=== PATIENT | male | born 1945 | race Asian ===

== ENCOUNTER 2017-08-15 12:26 | Inpatient (IN) | payer BC ==
[2017-08-15] MEDS: IBUPROFEN 600 MG TAB PO (15:09)
[2017-08-15] MEDS: CEFTRIAXONE 1 GM/50 ML (PMX) 50 ML IVPB (15:10)
[2017-08-15 15:14] LABS: ADD MAN DIFF? NO
[2017-08-15] MEDS: ALBUTEROL 0.5% (NEB) 2.5 MG/0.5 ML AMP INH (15:14)
[2017-08-15 15:21] LABS: WHITE BLOOD COUNT 3.5 10^3/ul (4.8-10.8)
[2017-08-15 15:21] LABS: ABNORMAL IP MESSAGE 1; BASOPHILS % 0.9 % (0.0-2.0); EOSINOPHILS # 0.1 10^3/ul (0.0-0.5); EOSINOPHILS % 3.2 % (0.0-7.0); HEMOGLOBIN 12.6 g/dl (14.0-18.0); LYMPHOCYTES # 0.7 10^3/ul (0.8-2.9); LYMPHOCYTES % 21.3 % (15.0-51.0); MEAN CORPUSCULAR HEMOGLOBIN 28.3 pg (29.0-33.0); MEAN CORPUSCULAR HGB CONC 32.3 g/dl (32.0-37.0); MEAN CORPUSCULAR VOLUME 87.4 fl (82.0-101.0); MONOCYTE # 0.6 10^3/ul (0.3-0.9); MONOCYTES % 17.6 % (0.0-11.0); NEUTROPHILS % 56.7 % (39.0-77.0); PLATELET COUNT 56 10^3/UL (140-415); POSITIVE DIFF @See below; RED BLOOD COUNT 4.46 10^6/ul (4.70-6.10); RED CELL DISTRIBUTION WIDTH 18.4 % (11.5-14.5)
[2017-08-15 16:04] LABS: INR 1.71; PROTIME 20.4 Sec (11.9-14.9); PT RATIO 1.6
[2017-08-15 16:05] LABS: PARTIAL THROMBOPLASTIN TIME 46.2 Sec (25.0-35.0)
[2017-08-15 16:40] LABS: LACTIC ACID 2.8 mmol/L (0.5-2.0)
[2017-08-15 16:40] LABS: ALANINE AMINOTRANSFERASE 17 IU/L (13-69); ALBUMIN 4.3 g/dl (3.3-4.9); ALKALINE PHOSPHATASE 249 IU/L (42-121); ANION GAP 23 (8-16); ASPARTATE AMINO TRANSFERASE 58 IU/L (15-46); BILIRUBIN,INDIRECT 0.4 mg/dl (0-1.1); BLOOD UREA NITROGEN 48 mg/dl (7-20); CALCIUM 8.7 mg/dl (8.4-10.2); CARBON DIOXIDE 27 mmol/L (21-31); CHLORIDE 90 mmol/L (97-110); GLUCOSE 99 mg/dl (70-220); LIPASE 458 U/L (23-300); POTASSIUM 4.2 mmol/L (3.5-5.1); SODIUM 136 mmol/L (135-144); TOTAL PROTEIN 8.2 g/dl (6.1-8.1)
[2017-08-15] MEDS: VANCOMYCIN 1 GM (PMX) 250 ML IVPB (16:45)
[2017-08-15 16:53] LABS: BILIRUBIN,TOTAL 0.7 mg/dl (0.2-1.3)
[2017-08-15 16:54] LABS: TROPONIN-I 0.178 ng/ml (0.00-0.12)
[2017-08-15 16:59] LABS: LACTIC ACID 1.7 mmol/L (0.5-2.0)
[2017-08-15] MEDS: OSELTAMIVIR 30 MG CAP PO (17:02)
[2017-08-15] MEDS: INSULIN ASPART [NOVOLOG] 3 ML PEN SC ×2 (17:42→20:47)
[2017-08-15] MEDS ORDERED: GLUCOSE GEL 15 GRAM TUBE BUCCAL (18:00)
[2017-08-15] MEDS ORDERED: GLUCOSE GEL 15 GRAM TUBE PO ×2 (18:00)
[2017-08-15 19:25] LABS: LACTIC ACID 2.2 mmol/L (0.5-2.0)
[2017-08-15] MEDS ORDERED: VANCOMYCIN IV PER PHARMACY XX (21:00)
[2017-08-16] MEDS: ACETAMINOPHEN 325 MG TAB PO ×3 (00:38→20:10)
[2017-08-16] MEDS: ACCU-CHEK XX (02:00)
[2017-08-16] MEDS: PANTOPRAZOLE (EC) 40 MG TAB PO (05:39)
[2017-08-16 06:28] LABS: WHITE BLOOD COUNT 2.7 10^3/ul (4.8-10.8)
[2017-08-16 06:28] LABS: ABNORMAL IP MESSAGE 1; HEMOGLOBIN 10.9 g/dl (14.0-18.0); MEAN CORPUSCULAR HEMOGLOBIN 28.9 pg (29.0-33.0); MEAN CORPUSCULAR VOLUME 87.5 fl (82.0-101.0); MEAN PLATELET VOLUME 12.1 fl (7.4-10.4); PLATELET COUNT 55 10^3/UL (140-415); POSITIVE DIFF @See below; RED BLOOD COUNT 3.77 10^6/ul (4.70-6.10); RED CELL DISTRIBUTION WIDTH 18.6 % (11.5-14.5)
[2017-08-16 06:35] LABS: ADD MAN DIFF? YES
[2017-08-16 06:50] LABS: ANION GAP 24 (8-16); BLOOD UREA NITROGEN 56 mg/dl (7-20); CALCIUM 8.1 mg/dl (8.4-10.2); CARBON DIOXIDE 26 mmol/L (21-31); CHLORIDE 93 mmol/L (97-110); CREATININE 4.53 mg/dl (0.61-1.24); GLUCOSE 94 mg/dl (70-220); SODIUM 139 mmol/L (135-144)
[2017-08-16 07:22] LABS: LACTIC ACID 2.3 mmol/L (0.5-2.0)
[2017-08-16 07:23] LABS: FREE T4 (FREE THYROXINE) 1.55 ng/dl (0.78-2.44)
[2017-08-16] MEDS: INSULIN ASPART [NOVOLOG] 3 ML PEN SC ×4 (07:35→21:00)
[2017-08-16 07:39] LABS: ANISOCYTOSIS 1+ (0-0); BAND NEUTROPHILS #M 0.1 10^3/ul (0.0-0.6); BAND NEUTROPHILS % (M) 6 % (0-4); BASOPHILS % (M) 2 % (0-2); BURR CELLS 2+ (0-0); EOSINOPHILS % (M) 12 % (0-7); GIANT THROMBO% (M) 1 % (0-0); LYMPHOCYTES #M 0.7 10^3/ul (0.8-2.9); LYMPHOCYTES % (M) 28 % (15-51); MONOCYTE #M 0.1 10^3/ul (0.3-0.9); MONOCYTES % (M) 6 % (0-11); PLATELET ESTIMATE DECREASED; POIKILOCYTOSIS 2+ (0-0); POLYCHROMASIA 1+ (0-0); REACTIVE LYMPHOCYTES #M 0.2 10^3/ul (0.0-0.0); REACTIVE LYMPHOCYTES% (M) 9 % (0-0); SEGMENTED NEUTROPHILS (M) % 37 % (39-77); SMUDGE%M 22 % (0-0)
[2017-08-16 08:20] LABS: HEMOGLOBIN A1C 6.3 % (0-5.9)
[2017-08-16] MEDS: CEFEPIME 1GM/50 ML (PMX) 50 ML IVPB (10:06)
[2017-08-16] MEDS ORDERED: LEVALBUTEROL (NEB) 0.63 MG/3 ML AMP HHN (17:30)
[2017-08-16 20:34] LABS: CREATINE KINASE 253 IU/L (23-200)
[2017-08-16 20:45] LABS: CK INDEX 1.3
[2017-08-16 20:47] LABS: CK-MB 3.17 ng/ml (0.0-2.4)
[2017-08-16 20:48] LABS: TROPONIN-I 0.189 ng/ml (0.00-0.12)
[2017-08-16] MEDS: LEVALBUTEROL (NEB) 0.63 MG/3 ML AMP HHN (21:03)
[2017-08-16] MEDS: OSELTAMIVIR 30 MG CAP PO (22:28)
[2017-08-17 01:26] LABS: CREATINE KINASE 272 IU/L (23-200)
[2017-08-17 01:40] LABS: CK INDEX 1.1
[2017-08-17 01:42] LABS: CK-MB 2.96 ng/ml (0.0-2.4); TROPONIN-I 0.191 ng/ml (0.00-0.12)
[2017-08-17] MEDS: ACCU-CHEK XX (01:43)
[2017-08-17] MEDS: LEVALBUTEROL (NEB) 0.63 MG/3 ML AMP HHN ×5 (02:00→19:33)
[2017-08-17] MEDS: GLUCAGON 1 MG INJ IM ×2 (02:15→22:06)
[2017-08-17] MEDS: GUAIFENESIN/DM 5ML CUP PO ×2 (05:48→13:10)
[2017-08-17] MEDS: PANTOPRAZOLE (EC) 40 MG TAB PO (05:55)
[2017-08-17 06:32] LABS: CREATINE KINASE 311 IU/L (23-200)
[2017-08-17 06:37] LABS: CK INDEX 1.2
[2017-08-17 06:51] LABS: CK-MB 3.75 ng/ml (0.0-2.4); TROPONIN-I 0.199 ng/ml (0.00-0.12)
[2017-08-17] MEDS: INSULIN ASPART [NOVOLOG] 3 ML PEN SC ×4 (07:35→21:00)
[2017-08-17 07:51] LABS: CHOLESTEROL 84 mg/dl (100-200)
[2017-08-17 07:51] LABS: CHOL/HDL RATIO 2.8 RATIO; HDL CHOLESTEROL 29 mg/dl (31-75); LDL CHOLESTEROL,CALCULATED 44 mg/dl; TRIGLYCERIDES 54 mg/dl (0-149)
[2017-08-17] MEDS: CEFEPIME 1GM/50 ML (PMX) 50 ML IVPB (09:37)
[2017-08-17] MEDS: INFLUENZA VIRUS VACCINE 0.5 ML (DISPENSING) IM* (09:38)
[2017-08-17] MEDS: VANCOMYCIN 1 GM 250 ML IVPB (13:12)
[2017-08-17] MEDS: ACETAMINOPHEN 325 MG TAB PO (21:11)
[2017-08-17] MEDS: DEXTROSE 50% 50 ML SYRINGE IV (22:52)
[2017-08-18] MEDS: ACCU-CHEK XX (02:00)
[2017-08-18] MEDS: LEVALBUTEROL (NEB) 0.63 MG/3 ML AMP HHN ×4 (02:38→20:11)
[2017-08-18] MEDS: DEXTROSE 50% 50 ML SYRINGE IV ×2 (03:24→12:37)
[2017-08-18 05:32] LABS: ADD MAN DIFF? NO
[2017-08-18 05:35] LABS: WHITE BLOOD COUNT 3.3 10^3/ul (4.8-10.8)
[2017-08-18 05:35] LABS: ABNORMAL IP MESSAGE 1; BASOPHILS % 0.6 % (0.0-2.0); EOSINOPHILS # 0.4 10^3/ul (0.0-0.5); EOSINOPHILS % 12.2 % (0.0-7.0); HEMATOCRIT 34.3 % (42.0-52.0); HEMOGLOBIN 11.1 g/dl (14.0-18.0); LYMPHOCYTES % 31.1 % (15.0-51.0); MEAN CORPUSCULAR HEMOGLOBIN 28.5 pg (29.0-33.0); MEAN CORPUSCULAR HGB CONC 32.4 g/dl (32.0-37.0); MEAN CORPUSCULAR VOLUME 87.9 fl (82.0-101.0); MONOCYTE # 0.3 10^3/ul (0.3-0.9); MONOCYTES % 9.8 % (0.0-11.0); NEUTROPHIL # 1.5 10^3/ul (1.6-7.5); POSITIVE DIFF @See below; RED CELL DISTRIBUTION WIDTH 18.4 % (11.5-14.5)
[2017-08-18 06:20] LABS: CREATINE KINASE 544 IU/L (23-200)
[2017-08-18 06:24] LABS: TROPONIN-I 0.149 ng/ml (0.00-0.12)
[2017-08-18 06:40] LABS: PLATELET COUNT 26 10^3/UL (140-415)
[2017-08-18 06:48] LABS: ANION GAP 24 (8-16); BLOOD UREA NITROGEN 49 mg/dl (7-20); CARBON DIOXIDE 21 mmol/L (21-31); CHLORIDE 95 mmol/L (97-110); CREATININE 4.44 mg/dl (0.61-1.24); GLUCOSE 115 mg/dl (70-220); SODIUM 136 mmol/L (135-144)
[2017-08-18] MEDS: INSULIN ASPART [NOVOLOG] 3 ML PEN SC ×4 (09:22→21:00)
[2017-08-18] MEDS: CEFEPIME 1GM/50 ML (PMX) 50 ML IVPB (09:24)
[2017-08-18] MEDS: ONDANSETRON 4 MG INJ IV (09:24)
[2017-08-18] MEDS: PANTOPRAZOLE (EC) 40 MG TAB PO (09:24)
[2017-08-18] MEDS: GUAIFENESIN/DM 5ML CUP PO (12:18)
[2017-08-18] MEDS: ACETAMINOPHEN 325 MG TAB PO ×2 (15:52→17:31)
[2017-08-18] MEDS: OSELTAMIVIR 30 MG CAP PO (22:14)
[2017-08-18] MEDS: SOD CHLORIDE 0.9% 250 ML IV (22:18)
[2017-08-18] MEDS ORDERED: ACETAMINOPHEN 500 MG TAB PO (22:30)
[2017-08-18 23:23] LABS: ANION GAP 19 (8-16); BLOOD UREA NITROGEN 33 mg/dl (7-20); CALCIUM 8.1 mg/dl (8.4-10.2); CARBON DIOXIDE 25 mmol/L (21-31); CHLORIDE 98 mmol/L (97-110); CREATININE 3.74 mg/dl (0.61-1.24); GLUCOSE 125 mg/dl (70-220); POTASSIUM 3.3 mmol/L (3.5-5.1); SODIUM 139 mmol/L (135-144)
[2017-08-18] MEDS: GABAPENTIN 100 MG CAP PO (23:56)
[2017-08-19] MEDS: ACCU-CHEK XX ×2 (02:00→23:30)
[2017-08-19] MEDS: LEVALBUTEROL (NEB) 0.63 MG/3 ML AMP HHN ×4 (02:08→19:54)
[2017-08-19] MEDS: POTASSIUM CHLORIDE (SR) 20 MEQ TAB PO (04:24)
[2017-08-19] MEDS: PANTOPRAZOLE (EC) 40 MG TAB PO (05:13)
[2017-08-19] MEDS: INSULIN ASPART [NOVOLOG] 3 ML PEN SC ×4 (08:00→21:00)
[2017-08-19 09:10] LABS: LACTIC ACID 3.2 mmol/L (0.5-2.0)
[2017-08-19] MEDS: GABAPENTIN 100 MG CAP PO ×2 (09:34→21:51)
[2017-08-19] MEDS: predniSONE 20 MG TAB PO (09:34)
[2017-08-19 09:55] LABS: ABNORMAL IP MESSAGE 1; HEMATOCRIT 35.5 % (42.0-52.0); HEMOGLOBIN 11.3 g/dl (14.0-18.0); MEAN CORPUSCULAR HEMOGLOBIN 27.9 pg (29.0-33.0); MEAN CORPUSCULAR HGB CONC 31.8 g/dl (32.0-37.0); MEAN CORPUSCULAR VOLUME 87.7 fl (82.0-101.0); POSITIVE DIFF @See below; RED BLOOD COUNT 4.05 10^6/ul (4.70-6.10); RED CELL DISTRIBUTION WIDTH 18.4 % (11.5-14.5)
[2017-08-19 10:06] LABS: ADD MAN DIFF? YES
[2017-08-19 10:09] LABS: ANION GAP 20 (8-16); BLOOD UREA NITROGEN 35 mg/dl (7-20); CALCIUM 8.2 mg/dl (8.4-10.2); CARBON DIOXIDE 26 mmol/L (21-31); CHLORIDE 97 mmol/L (97-110); CREATININE 4.08 mg/dl (0.61-1.24); GLUCOSE 108 mg/dl (70-220); PLATELET COUNT 19 10^3/UL (140-415); POTASSIUM 3.6 mmol/L (3.5-5.1); SODIUM 139 mmol/L (135-144)
[2017-08-19 10:52] LABS: BAND NEUTROPHILS #M 0.2 10^3/ul (0.0-0.6); BAND NEUTROPHILS % (M) 7 % (0-4); BURR CELLS 2+ (0-0); ECHINOCYTOSIS 2+ (0-0); EOSINOPHILS % (M) 14 % (0-7); LYMPHOCYTES #M 1.1 10^3/ul (0.8-2.9); LYMPHOCYTES % (M) 38 % (15-51); MONOCYTE #M 0.2 10^3/ul (0.3-0.9); MONOCYTES % (M) 8 % (0-11); PLATELET ESTIMATE SIG DECREASED; POIKILOCYTOSIS 2+ (0-0); SEGMENTED NEUTROPHILS (M) % 33 % (39-77); SMUDGE%M 3 % (0-0); TEAR DROP CELLS 1+ (0-0)
[2017-08-19] MEDS: CEFEPIME 1GM/50 ML (PMX) 50 ML IVPB (11:24)
[2017-08-19 13:37] LABS: LACTIC ACID 2.4 mmol/L (0.5-2.0)
[2017-08-19] MEDS: ALBUMIN HUMAN 25% 100 ML IV ×2 (14:06→21:51)
[2017-08-19] MEDS: ONDANSETRON 4 MG INJ IV ×2 (15:49→22:04)
[2017-08-19 19:38] LABS: LACTIC ACID 3.1 mmol/L (0.5-2.0)
[2017-08-19] MEDS: GUAIFENESIN/DM 5ML CUP PO (22:04)
[2017-08-20 00:36] LABS: TYPE AND SCREEN 1
[2017-08-20] MEDS: LEVALBUTEROL (NEB) 0.63 MG/3 ML AMP HHN ×4 (01:10→21:08)
[2017-08-20] MEDS: PANTOPRAZOLE (EC) 40 MG TAB PO (05:32)
[2017-08-20] MEDS: INSULIN ASPART [NOVOLOG] 3 ML PEN SC ×4 (08:00→21:58)
[2017-08-20] MEDS: predniSONE 20 MG TAB PO (08:26)
[2017-08-20] MEDS: GABAPENTIN 100 MG CAP PO ×2 (08:26→22:02)
[2017-08-20] MEDS: CEFEPIME 1GM/50 ML (PMX) 50 ML IVPB (08:27)
[2017-08-20] MEDS: ONDANSETRON 4 MG INJ IV ×2 (13:32→21:50)
[2017-08-20 15:04] LABS: ADD MAN DIFF? NO
[2017-08-20 15:06] LABS: WHITE BLOOD COUNT 3.1 10^3/ul (4.8-10.8)
[2017-08-20 15:06] LABS: ABNORMAL IP MESSAGE 1; HEMATOCRIT 34.9 % (42.0-52.0); HEMOGLOBIN 11.2 g/dl (14.0-18.0); LYMPHOCYTES # 0.5 10^3/ul (0.8-2.9); LYMPHOCYTES % 17.3 % (15.0-51.0); MEAN CORPUSCULAR HEMOGLOBIN 27.9 pg (29.0-33.0); MEAN CORPUSCULAR HGB CONC 32.1 g/dl (32.0-37.0); MONOCYTE # 0.2 10^3/ul (0.3-0.9); MONOCYTES % 4.8 % (0.0-11.0); NEUTROPHIL # 2.4 10^3/ul (1.6-7.5); NEUTROPHILS % 77.6 % (39.0-77.0); NUCLEATED RED BLOOD CELLS% 0.6 /100WBC (0.0-0.0); PLATELET COUNT 54 10^3/UL (140-415); POSITIVE DIFF @See below; RED BLOOD COUNT 4.01 10^6/ul (4.70-6.10); RED CELL DISTRIBUTION WIDTH 18.3 % (11.5-14.5)
[2017-08-20 15:29] LABS: ANION GAP 27 (8-16); BLOOD UREA NITROGEN 44 mg/dl (7-20); CALCIUM 8.3 mg/dl (8.4-10.2); CARBON DIOXIDE 17 mmol/L (21-31); CHLORIDE 98 mmol/L (97-110); CREATININE 4.71 mg/dl (0.61-1.24); GLUCOSE 168 mg/dl (70-220); POTASSIUM 5.3 mmol/L (3.5-5.1); SODIUM 137 mmol/L (135-144)
[2017-08-20 15:36] LABS: INR 1.79; PROTIME 21.2 Sec (11.9-14.9); PT RATIO 1.7
[2017-08-20 15:53] LABS: LACTIC ACID 3.8 mmol/L (0.5-2.0)
[2017-08-20 18:06] LABS: PLATELET COUNT 67 10^3/UL (140-415)
[2017-08-20 18:29] LABS: INR 1.77; PT RATIO 1.6
[2017-08-20 18:30] LABS: PARTIAL THROMBOPLASTIN TIME 40.3 Sec (25.0-35.0); THROMBIN TIME 19.2 SEC (13.8-19.1)
[2017-08-20 18:30] LABS: TRIGLYCERIDES 103 mg/dl (0-149)
[2017-08-20 18:33] LABS: D-DIMER 3745.49 ng/ml (<460)
[2017-08-20 18:35] LABS: FIBRIN SPLIT PRODUCT <10 ug/ml (<10)
[2017-08-20] MEDS ORDERED: AL HYDROX/MG HYDROX/SIMETH 30 ML CUP PO (19:00)
[2017-08-20 19:15] LABS: AMYLASE 97 U/L (11-123)
[2017-08-20 19:38] LABS: LIPASE 147 U/L (23-300)
[2017-08-20] MEDS: PANTOPRAZOLE 40 MG INJ IV (21:55)
[2017-08-20] MEDS: NA POLYST SULFON 15 GM/60 ML BTL PO (21:55)
[2017-08-20] MEDS: SOD CHLORIDE 0.9% 1,000 ML IV (22:04)
[2017-08-21] MEDS: OSELTAMIVIR 30 MG CAP PO (00:33)
[2017-08-21] MEDS: LEVALBUTEROL (NEB) 0.63 MG/3 ML AMP HHN ×4 (01:46→20:00)
[2017-08-21] MEDS: PANTOPRAZOLE (EC) 40 MG TAB PO (05:46)
[2017-08-21] MEDS: ACCU-CHEK XX (05:46)
[2017-08-21 08:21] LABS: ADD MAN DIFF? NO
[2017-08-21 08:26] LABS: WHITE BLOOD COUNT 4.6 10^3/ul (4.8-10.8)
[2017-08-21 08:26] LABS: ABNORMAL IP MESSAGE 1; HEMATOCRIT 33.4 % (42.0-52.0); HEMOGLOBIN 10.9 g/dl (14.0-18.0); LYMPHOCYTES # 0.7 10^3/ul (0.8-2.9); LYMPHOCYTES % 15.8 % (15.0-51.0); MEAN CORPUSCULAR HGB CONC 32.6 g/dl (32.0-37.0); MEAN CORPUSCULAR VOLUME 85.9 fl (82.0-101.0); MEAN PLATELET VOLUME 12.3 fl (7.4-10.4); MONOCYTE # 0.4 10^3/ul (0.3-0.9); MONOCYTES % 8.7 % (0.0-11.0); NEUTROPHIL # 3.5 10^3/ul (1.6-7.5); NEUTROPHILS % 75.3 % (39.0-77.0); NUCLEATED RED BLOOD CELLS% 0.4 /100WBC (0.0-0.0); PLATELET COUNT 73 10^3/UL (140-415); POSITIVE DIFF @See below; RED BLOOD COUNT 3.89 10^6/ul (4.70-6.10); RED CELL DISTRIBUTION WIDTH 18.1 % (11.5-14.5)
[2017-08-21] MEDS: INSULIN ASPART [NOVOLOG] 3 ML PEN SC ×4 (08:35→22:23)
[2017-08-21] MEDS: GABAPENTIN 100 MG CAP PO ×2 (08:36→22:11)
[2017-08-21] MEDS: predniSONE 10 MG TAB PO (08:36)
[2017-08-21] MEDS: CEFEPIME 1GM/50 ML (PMX) 50 ML IVPB (08:38)
[2017-08-21 08:51] LABS: ALANINE AMINOTRANSFERASE 23 IU/L (13-69); ALBUMIN 3.9 g/dl (3.3-4.9); ALBUMIN/GLOBULIN RATIO 1.11; ALKALINE PHOSPHATASE 171 IU/L (42-121); ANION GAP 26 (8-16); ASPARTATE AMINO TRANSFERASE 52 IU/L (15-46); BILIRUBIN,INDIRECT 0.4 mg/dl (0-1.1); BILIRUBIN,TOTAL 0.5 mg/dl (0.2-1.3); BLOOD UREA NITROGEN 52 mg/dl (7-20); C-REACTIVE PROTEIN 2.3 mg/dl (0.0-0.9); CALCIUM 8.2 mg/dl (8.4-10.2); CARBON DIOXIDE 19 mmol/L (21-31); CHLORIDE 97 mmol/L (97-110); CREATININE 5.14 mg/dl (0.61-1.24); GLUCOSE 196 mg/dl (70-220); POTASSIUM 4.6 mmol/L (3.5-5.1); SODIUM 137 mmol/L (135-144); TOTAL PROTEIN 7.4 g/dl (6.1-8.1)
[2017-08-21 09:03] LABS: LACTIC ACID 2.4 mmol/L (0.5-2.0)
[2017-08-21] MEDS: VANCOMYCIN 1 GM 250 ML IVPB (10:13)
[2017-08-21 10:28] LABS: ERYTHROCYTE SEDIMENTATION RATE 5 mm/Hr (0-20)
[2017-08-21 16:09] LABS: TROPONIN-I 0.045 ng/ml (0.00-0.12)
[2017-08-21] MEDS: METOCLOPRAMIDE 10 MG INJ IV (17:27)
[2017-08-21] MEDS: ACETAMINOPHEN 325 MG TAB PO (22:11)
[2017-08-21] MEDS: INSULIN GLARGINE [LANtus] 3 ML PEN SC (22:29)
[2017-08-22] MEDS: METOCLOPRAMIDE 10 MG INJ IV ×5 (01:06→23:46)
[2017-08-22] MEDS: ACCU-CHEK XX (01:06)
[2017-08-22] MEDS: LEVALBUTEROL (NEB) 0.63 MG/3 ML AMP HHN ×4 (01:49→19:49)
[2017-08-22] MEDS: PANTOPRAZOLE (EC) 40 MG TAB PO (05:44)
[2017-08-22 08:00] LABS: ADD MAN DIFF? NO
[2017-08-22 08:03] LABS: ABNORMAL IP MESSAGE 1; HEMATOCRIT 32.5 % (42.0-52.0); HEMOGLOBIN 10.7 g/dl (14.0-18.0); LYMPHOCYTES # 0.8 10^3/ul (0.8-2.9); LYMPHOCYTES % 13.2 % (15.0-51.0); MEAN CORPUSCULAR HEMOGLOBIN 28.2 pg (29.0-33.0); MEAN CORPUSCULAR HGB CONC 32.9 g/dl (32.0-37.0); MEAN CORPUSCULAR VOLUME 85.5 fl (82.0-101.0); MEAN PLATELET VOLUME 13.5 fl (7.4-10.4); MONOCYTE # 0.6 10^3/ul (0.3-0.9); MONOCYTES % 10.3 % (0.0-11.0); NEUTROPHIL # 4.6 10^3/ul (1.6-7.5); NEUTROPHILS % 76.2 % (39.0-77.0); POSITIVE DIFF @See below; RED CELL DISTRIBUTION WIDTH 18.2 % (11.5-14.5)
[2017-08-22] MEDS: GABAPENTIN 100 MG CAP PO (08:19)
[2017-08-22] MEDS: predniSONE 10 MG TAB PO (08:19)
[2017-08-22] MEDS: INSULIN ASPART [NOVOLOG] 3 ML PEN SC ×4 (08:25→20:56)
[2017-08-22 08:30] LABS: ANION GAP 18 (8-16); BLOOD UREA NITROGEN 35 mg/dl (7-20); CALCIUM 8.2 mg/dl (8.4-10.2); CARBON DIOXIDE 23 mmol/L (21-31); CHLORIDE 98 mmol/L (97-110); CREATININE 3.97 mg/dl (0.61-1.24); GLUCOSE 132 mg/dl (70-220); SODIUM 135 mmol/L (135-144)
[2017-08-22 08:36] LABS: PLATELET COUNT 53 10^3/UL (140-415)
[2017-08-22] MEDS: CEFEPIME 1GM/50 ML (PMX) 50 ML IVPB (09:30)
[2017-08-22 10:49] LABS: TYPE AND SCREEN 1 1
[2017-08-22] MEDS: ACETAMINOPHEN 325 MG TAB PO (13:01)
[2017-08-22 17:32] LABS: LACTATE DEHYDROGENASE 679 IU/L (313-618)
[2017-08-22] MEDS: ZOLPIDEM 5 MG TAB PO (20:52)
[2017-08-22] MEDS: OSELTAMIVIR 30 MG CAP PO (20:52)
[2017-08-22] MEDS: INSULIN GLARGINE [LANtus] 3 ML PEN SC (20:55)
[2017-08-23] MEDS: LEVALBUTEROL (NEB) 0.63 MG/3 ML AMP HHN ×4 (02:15→20:08)
[2017-08-23] MEDS: ACCU-CHEK XX (02:28)
[2017-08-23] MEDS: GUAIFENESIN/DM 5ML CUP PO (02:30)
[2017-08-23] MEDS: PANTOPRAZOLE (EC) 40 MG TAB PO (06:20)
[2017-08-23] MEDS: METOCLOPRAMIDE 10 MG INJ IV ×3 (06:21→17:14)
[2017-08-23] MEDS: INSULIN ASPART [NOVOLOG] 3 ML PEN SC ×4 (08:10→21:07)
[2017-08-23] MEDS: predniSONE 10 MG TAB PO (08:12)
[2017-08-23 08:22] LABS: PLATELET COUNT 64 10^3/UL (140-415)
[2017-08-23 08:38] LABS: INR 1.73; PROTIME 20.6 Sec (11.9-14.9); PT RATIO 1.6
[2017-08-23 08:40] LABS: PARTIAL THROMBOPLASTIN TIME 34.9 Sec (25.0-35.0)
[2017-08-23 08:43] LABS: THROMBIN TIME 20.3 SEC (13.8-19.1)
[2017-08-23 09:19] LABS: D-DIMER 6286.69 ng/ml (<460)
[2017-08-23 09:42] LABS: FIBRIN SPLIT PRODUCT >10 and <40 ug/ml (<10)
[2017-08-23 15:42] LABS: HEPARIN INDUCED PLATELET AB NEGATIVE (NEGATIVE)
[2017-08-23] MEDS: INSULIN GLARGINE [LANtus] 3 ML PEN SC (21:08)
[2017-08-24 00:02] LABS: TYPE AND SCREEN 1 1
[2017-08-24] MEDS: METOCLOPRAMIDE 10 MG INJ IV ×3 (00:49→12:00)
[2017-08-24] MEDS: LEVALBUTEROL (NEB) 0.63 MG/3 ML AMP HHN ×4 (01:53→20:12)
[2017-08-24] MEDS: ACCU-CHEK XX (02:00)
[2017-08-24] MEDS: PANTOPRAZOLE (EC) 40 MG TAB PO (06:08)
[2017-08-24] MEDS: INSULIN ASPART [NOVOLOG] 3 ML PEN SC ×4 (07:52→20:31)
[2017-08-24 08:54] LABS: ABNORMAL IP MESSAGE 1; ADD MAN DIFF? NO; BASOPHILS % 0.1 % (0.0-2.0); HEMOGLOBIN 11.6 g/dl (14.0-18.0); LYMPHOCYTES % 12.8 % (15.0-51.0); MEAN CORPUSCULAR HEMOGLOBIN 28.4 pg (29.0-33.0); MEAN CORPUSCULAR HGB CONC 33.1 g/dl (32.0-37.0); MEAN CORPUSCULAR VOLUME 85.8 fl (82.0-101.0); MONOCYTES % 12.3 % (0.0-11.0); NEUTROPHIL # 5.9 10^3/ul (1.6-7.5); NEUTROPHILS % 74.3 % (39.0-77.0); NUCLEATED RED BLOOD CELLS% 0.5 /100WBC (0.0-0.0); POSITIVE DIFF @See below; RED BLOOD COUNT 4.08 10^6/ul (4.70-6.10)
[2017-08-24 08:54] LABS: WHITE BLOOD COUNT 7.9 10^3/ul (4.8-10.8)
[2017-08-24] MEDS: predniSONE 10 MG TAB PO (08:57)
[2017-08-24 08:58] LABS: PLATELET COUNT 51 10^3/UL (140-415)
[2017-08-24] MEDS: ONDANSETRON 4 MG INJ IV (09:02)
[2017-08-24 09:22] LABS: INR 1.44; PROTIME 17.8 Sec (11.9-14.9); PT RATIO 1.4
[2017-08-24 09:23] LABS: PARTIAL THROMBOPLASTIN TIME 35.1 Sec (25.0-35.0)
[2017-08-24 09:24] LABS: THROMBIN TIME 20.6 SEC (13.8-19.1)
[2017-08-24 09:27] LABS: FIBRIN SPLIT PRODUCT >10 and <40 ug/ml (<10)
[2017-08-24 09:29] LABS: PLATELET COUNT 51 10^3/UL (140-440)
[2017-08-24 09:34] LABS: ALANINE AMINOTRANSFERASE 24 IU/L (13-69); ALBUMIN 3.7 g/dl (3.3-4.9); ALKALINE PHOSPHATASE 154 IU/L (42-121); ANION GAP 17 (8-16); ASPARTATE AMINO TRANSFERASE 39 IU/L (15-46); BILIRUBIN,INDIRECT 0.3 mg/dl (0-1.1); BILIRUBIN,TOTAL 0.4 mg/dl (0.2-1.3); BLOOD UREA NITROGEN 40 mg/dl (7-20); CALCIUM 8.9 mg/dl (8.4-10.2); CARBON DIOXIDE 25 mmol/L (21-31); CHLORIDE 98 mmol/L (97-110); CREATININE 4.19 mg/dl (0.61-1.24); GLUCOSE 129 mg/dl (70-220); POTASSIUM 3.2 mmol/L (3.5-5.1); SODIUM 137 mmol/L (135-144); TOTAL PROTEIN 7.4 g/dl (6.1-8.1)
[2017-08-24 09:43] LABS: D-DIMER 8519.87 ng/ml (<460)
[2017-08-24 11:23] LABS: PROCALCITONIN 9.84 ng/mL (<0.10)
[2017-08-24] MEDS: POTASSIUM CHLORIDE (SR) 20 MEQ TAB PO (12:53)
[2017-08-24] MEDS: METOCLOPRAMIDE 5 MG TAB PO ×2 (17:10→23:43)
[2017-08-24] MEDS: INSULIN GLARGINE [LANtus] 3 ML PEN SC (20:27)
[2017-08-25] MEDS: ACCU-CHEK XX (02:00)
[2017-08-25] MEDS: LEVALBUTEROL (NEB) 0.63 MG/3 ML AMP HHN ×4 (02:00→20:19)
[2017-08-25] MEDS: PANTOPRAZOLE (EC) 40 MG TAB PO (06:03)
[2017-08-25] MEDS: METOCLOPRAMIDE 5 MG TAB PO ×3 (06:03→18:00)
[2017-08-25 06:42] LABS: ADD MAN DIFF? NO
[2017-08-25 06:54] LABS: WHITE BLOOD COUNT 9.2 10^3/ul (4.8-10.8)
[2017-08-25 06:54] LABS: ABNORMAL IP MESSAGE 1; BASOPHILS % 0.1 % (0.0-2.0); HEMATOCRIT 44.2 % (42.0-52.0); HEMOGLOBIN 14.3 g/dl (14.0-18.0); LYMPHOCYTES # 1.3 10^3/ul (0.8-2.9); LYMPHOCYTES % 13.9 % (15.0-51.0); MEAN CORPUSCULAR HEMOGLOBIN 28.1 pg (29.0-33.0); MEAN CORPUSCULAR HGB CONC 32.4 g/dl (32.0-37.0); MEAN CORPUSCULAR VOLUME 86.8 fl (82.0-101.0); MONOCYTE # 0.9 10^3/ul (0.3-0.9); MONOCYTES % 9.8 % (0.0-11.0); NEUTROPHILS % 75.8 % (39.0-77.0); NUCLEATED RED BLOOD CELLS # 0.1 10^3/ul (0.0-0.0); POSITIVE DIFF @See below; RED BLOOD COUNT 5.09 10^6/ul (4.70-6.10); RED CELL DISTRIBUTION WIDTH 20.2 % (11.5-14.5)
[2017-08-25 07:09] LABS: ANION GAP 24 (8-16); BLOOD UREA NITROGEN 56 mg/dl (7-20); CALCIUM 8.6 mg/dl (8.4-10.2); CARBON DIOXIDE 21 mmol/L (21-31); CHLORIDE 98 mmol/L (97-110); CREATININE 4.73 mg/dl (0.61-1.24); GLUCOSE 93 mg/dl (70-220); POTASSIUM 5.2 mmol/L (3.5-5.1); SODIUM 138 mmol/L (135-144)
[2017-08-25 07:13] LABS: PLATELET COUNT 43 10^3/UL (140-415)
[2017-08-25] MEDS: INSULIN ASPART [NOVOLOG] 3 ML PEN SC ×4 (08:00→21:32)
[2017-08-25 09:02] LABS: MAGNESIUM 2.4 mg/dl (1.7-2.5)
[2017-08-25 09:02] LABS: PHOSPHORUS 5.9 mg/dl (2.5-4.9)
[2017-08-25 10:14] LABS: INR 1.87; PROTIME 21.9 Sec (11.9-14.9); PT RATIO 1.7
[2017-08-25 10:15] LABS: PARTIAL THROMBOPLASTIN TIME 34.1 Sec (25.0-35.0); THROMBIN TIME 20.3 SEC (13.8-19.1)
[2017-08-25 10:41] LABS: D-DIMER 9237.33 ng/ml (<460)
[2017-08-25] MEDS: predniSONE 10 MG TAB PO (10:41)
[2017-08-25 11:03] LABS: PLATELET COUNT 43 10^3/UL (140-440)
[2017-08-25 11:05] LABS: FIBRIN SPLIT PRODUCT >10 and <40 ug/ml (<10)
[2017-08-25] MEDS: ACETAMINOPHEN 325 MG TAB PO (21:24)
[2017-08-25] MEDS: INSULIN GLARGINE [LANtus] 3 ML PEN SC (21:31)
[2017-08-26] MEDS: traMADol 50 MG TAB PO (00:27)
[2017-08-26] MEDS: METOCLOPRAMIDE 5 MG TAB PO ×5 (00:27→23:45)
[2017-08-26] MEDS: LEVALBUTEROL (NEB) 0.63 MG/3 ML AMP HHN ×4 (01:21→19:47)
[2017-08-26] MEDS: ACCU-CHEK XX (02:00)
[2017-08-26] MEDS: PANTOPRAZOLE (EC) 40 MG TAB PO (05:53)
[2017-08-26] MEDS: INSULIN ASPART [NOVOLOG] 3 ML PEN SC ×5 (08:00→22:07)
[2017-08-26] MEDS: CALCIUM ACETATE 667 MG CAP PO ×3 (08:03→16:55)
[2017-08-26] MEDS: predniSONE 10 MG TAB PO (08:12)
[2017-08-26] MEDS: MEGESTROL (40 MG/ML) 10ML CUP PO (08:12)
[2017-08-26 09:25] LABS: INR 1.94; PROTIME 22.6 Sec (11.9-14.9); PT RATIO 1.8
[2017-08-26 09:26] LABS: PARTIAL THROMBOPLASTIN TIME 34.8 Sec (25.0-35.0)
[2017-08-26 09:28] LABS: THROMBIN TIME 20.5 SEC (13.8-19.1)
[2017-08-26 09:31] LABS: ANION GAP 21 (8-16); BLOOD UREA NITROGEN 47 mg/dl (7-20); CALCIUM 8.3 mg/dl (8.4-10.2); CARBON DIOXIDE 25 mmol/L (21-31); CHLORIDE 96 mmol/L (97-110); CREATININE 4.03 mg/dl (0.61-1.24); GLUCOSE 75 mg/dl (70-220); POTASSIUM 3.8 mmol/L (3.5-5.1); SODIUM 138 mmol/L (135-144)
[2017-08-26 09:42] LABS: FIBRIN SPLIT PRODUCT >10 and <40 ug/ml (<10)
[2017-08-26 09:44] LABS: PLATELET COUNT 49 10^3/UL (140-440)
[2017-08-26 09:47] LABS: D-DIMER 9938.08 ng/ml (<460)
[2017-08-26 12:19] LABS: HAAIG REFLEX REFLEX FILED
[2017-08-26 14:38] LABS: HEPATITIS B CORE ANTIBODY NEGATIVE (NEGATIVE); HEPATITIS C VIRAL ANTIBODY NEGATIVE (NEGATIVE)
[2017-08-26 14:55] LABS: HEPATITIS B SURFACE ANTIGEN NEGATIVE (NEGATIVE)
[2017-08-26 15:27] LABS: HIV 1&2 ANTIBODY NEGATIVE (NEGATIVE)
[2017-08-26 16:33] LABS: PROCALCITONIN 2.58 ng/mL (<0.10)
[2017-08-26] MEDS: INSULIN GLARGINE [LANtus] 3 ML PEN SC (21:26)
[2017-08-27] MEDS: LEVALBUTEROL (NEB) 0.63 MG/3 ML AMP HHN ×4 (01:11→21:38)
[2017-08-27] MEDS: ACCU-CHEK XX (02:00)
[2017-08-27] MEDS: PANTOPRAZOLE (EC) 40 MG TAB PO (05:46)
[2017-08-27] MEDS: METOCLOPRAMIDE 5 MG TAB PO ×4 (05:51→23:24)
[2017-08-27 06:18] LABS: PLATELET COUNT 64 10^3/UL (140-415)
[2017-08-27 06:48] LABS: INR 1.95; PROTIME 22.7 Sec (11.9-14.9); PT RATIO 1.8
[2017-08-27 06:49] LABS: PARTIAL THROMBOPLASTIN TIME 34.2 Sec (25.0-35.0); THROMBIN TIME 21.4 SEC (13.8-19.1)
[2017-08-27 06:56] LABS: ANION GAP 18 (8-16); BLOOD UREA NITROGEN 60 mg/dl (7-20); CALCIUM 8.3 mg/dl (8.4-10.2); CARBON DIOXIDE 23 mmol/L (21-31); CHLORIDE 97 mmol/L (97-110); GLUCOSE 159 mg/dl (70-220); POTASSIUM 3.6 mmol/L (3.5-5.1); SODIUM 134 mmol/L (135-144)
[2017-08-27 07:08] LABS: D-DIMER 9429.95 ng/ml (<460)
[2017-08-27 07:28] LABS: FIBRIN SPLIT PRODUCT >10 and <40 ug/ml (<10)
[2017-08-27] MEDS: INSULIN ASPART [NOVOLOG] 3 ML PEN SC ×5 (08:00→21:00)
[2017-08-27] MEDS: MEGESTROL (40 MG/ML) 10ML CUP PO (08:37)
[2017-08-27] MEDS: CALCIUM ACETATE 667 MG CAP PO ×3 (08:38→16:34)
[2017-08-27] MEDS: predniSONE 10 MG TAB PO (08:39)
[2017-08-27] MEDS: ZOLPIDEM 5 MG TAB PO (20:31)
[2017-08-27] MEDS: INSULIN GLARGINE [LANtus] 3 ML PEN SC (20:36)
[2017-08-28] MEDS: LEVALBUTEROL (NEB) 0.63 MG/3 ML AMP HHN ×4 (01:33→19:38)
[2017-08-28] MEDS: ACCU-CHEK XX (02:00)
[2017-08-28 06:14] LABS: ADD MAN DIFF? NO
[2017-08-28] MEDS: PANTOPRAZOLE (EC) 40 MG TAB PO (06:14)
[2017-08-28] MEDS: METOCLOPRAMIDE 5 MG TAB PO ×3 (06:15→17:50)
[2017-08-28 06:19] LABS: WHITE BLOOD COUNT 9.1 10^3/ul (4.8-10.8)
[2017-08-28 06:19] LABS: ABNORMAL IP MESSAGE 1; BASOPHILS % 0.1 % (0.0-2.0); HEMATOCRIT 39.1 % (42.0-52.0); LYMPHOCYTES # 1.2 10^3/ul (0.8-2.9); LYMPHOCYTES % 13.5 % (15.0-51.0); MEAN CORPUSCULAR HEMOGLOBIN 28.6 pg (29.0-33.0); MEAN CORPUSCULAR HGB CONC 33.2 g/dl (32.0-37.0); MEAN CORPUSCULAR VOLUME 85.9 fl (82.0-101.0); MONOCYTES % 11.4 % (0.0-11.0); NEUTROPHIL # 6.8 10^3/ul (1.6-7.5); NEUTROPHILS % 74.7 % (39.0-77.0); NUCLEATED RED BLOOD CELLS% 0.2 /100WBC (0.0-0.0); POSITIVE DIFF @See below; RED BLOOD COUNT 4.55 10^6/ul (4.70-6.10); RED CELL DISTRIBUTION WIDTH 20.6 % (11.5-14.5)
[2017-08-28 06:24] LABS: PLATELET COUNT 46 10^3/UL (140-415)
[2017-08-28 06:25] LABS: PLATELET COUNT 46 10^3/UL (140-415)
[2017-08-28 06:44] LABS: ANION GAP 22 (8-16); BLOOD UREA NITROGEN 55 mg/dl (7-20); CALCIUM 8.4 mg/dl (8.4-10.2); CARBON DIOXIDE 27 mmol/L (21-31); CHLORIDE 95 mmol/L (97-110); CREATININE 3.71 mg/dl (0.61-1.24); GLUCOSE 203 mg/dl (70-220); POTASSIUM 3.5 mmol/L (3.5-5.1); SODIUM 140 mmol/L (135-144)
[2017-08-28 06:53] LABS: INR 1.71; PROTIME 20.4 Sec (11.9-14.9); PT RATIO 1.6
[2017-08-28 06:54] LABS: PARTIAL THROMBOPLASTIN TIME 31.5 Sec (25.0-35.0); THROMBIN TIME 20.5 SEC (13.8-19.1)
[2017-08-28 07:25] LABS: FIBRIN SPLIT PRODUCT >10 and <40 ug/ml (<10)
[2017-08-28 07:29] LABS: D-DIMER 9269.52 ng/ml (<460)
[2017-08-28] MEDS: INSULIN ASPART [NOVOLOG] 3 ML PEN SC ×4 (08:49→21:22)
[2017-08-28] MEDS: CALCIUM ACETATE 667 MG CAP PO ×3 (08:50→17:50)
[2017-08-28] MEDS: MEGESTROL (40 MG/ML) 10ML CUP PO (08:51)
[2017-08-28] MEDS: predniSONE 10 MG TAB PO (08:51)
[2017-08-28] MEDS: LISINOPRIL 5 MG TAB PO (17:50)
[2017-08-28] MEDS: INSULIN GLARGINE [LANtus] 3 ML PEN SC (21:21)
[2017-08-29] MEDS: LEVALBUTEROL (NEB) 0.63 MG/3 ML AMP HHN ×4 (01:10→19:12)
[2017-08-29] MEDS: DEXTROSE 5%-0.45% NACL 1,000 ML IV (01:19)
[2017-08-29] MEDS: ACCU-CHEK XX (02:00)
[2017-08-29] MEDS: INSULIN ASPART [NOVOLOG] 3 ML PEN SC ×5 (05:20→21:06)
[2017-08-29] MEDS: PANTOPRAZOLE (EC) 40 MG TAB PO (05:23)
[2017-08-29] MEDS: METOCLOPRAMIDE 5 MG TAB PO ×4 (05:23→17:14)
[2017-08-29] MEDS: CALCIUM ACETATE 667 MG CAP PO ×3 (07:35→17:14)
[2017-08-29] MEDS: MEGESTROL (40 MG/ML) 10ML CUP PO (09:00)
[2017-08-29] MEDS: LISINOPRIL 5 MG TAB PO (09:00)
[2017-08-29] MEDS: predniSONE 10 MG TAB PO (09:00)
[2017-08-29] MEDS: INSULIN GLARGINE [LANtus] 3 ML PEN SC (21:03)
[2017-08-30] MEDS: DEXTROSE 5%-0.45% NACL 1,000 ML IV (00:10)
[2017-08-30] MEDS: INSULIN ASPART [NOVOLOG] 3 ML PEN SC ×6 (00:59→21:13)
[2017-08-30] MEDS: LEVALBUTEROL (NEB) 0.63 MG/3 ML AMP HHN ×4 (01:00→20:44)
[2017-08-30] MEDS: ACCU-CHEK XX (02:00)
[2017-08-30] MEDS: PANTOPRAZOLE (EC) 40 MG TAB PO (05:38)
[2017-08-30] MEDS: METOCLOPRAMIDE 5 MG TAB PO ×5 (05:38→23:57)
[2017-08-30] MEDS: CALCIUM ACETATE 667 MG CAP PO ×3 (07:35→18:15)
[2017-08-30] MEDS: predniSONE 10 MG TAB PO ×2 (09:00→12:10)
[2017-08-30] MEDS: MEGESTROL (40 MG/ML) 10ML CUP PO ×2 (09:00→12:10)
[2017-08-30] MEDS: LISINOPRIL 5 MG TAB PO (09:00)
[2017-08-30] MEDS: DEXTROSE 50% 50 ML SYRINGE IV (09:21)
[2017-08-30 09:52] LABS: INR 1.69; PARTIAL THROMBOPLASTIN TIME 32.4 Sec (25.0-35.0); PROTIME 20.2 Sec (11.9-14.9); PT RATIO 1.6
[2017-08-30] MEDS: PHYTONADIONE 10 MG/ML INJ SC (21:09)
[2017-08-30] MEDS: INSULIN GLARGINE [LANtus] 3 ML PEN SC (21:11)
[2017-08-30] MEDS: AL HYDROX/MG HYDROX/SIMETH 30 ML CUP PO (23:57)
[2017-08-30] MEDS: DOCUSATE SODIUM 100 MG CAP PO (23:57)
[2017-08-31] MEDS: LEVALBUTEROL (NEB) 0.63 MG/3 ML AMP HHN ×3 (01:31→13:49)
[2017-08-31] MEDS: ACCU-CHEK XX (02:00)
[2017-08-31 03:14] LABS: TYPE AND SCREEN 1 1
[2017-08-31] MEDS: PANTOPRAZOLE (EC) 40 MG TAB PO (05:05)
[2017-08-31] MEDS: METOCLOPRAMIDE 5 MG TAB PO ×2 (05:05→12:05)
[2017-08-31] MEDS: INSULIN ASPART [NOVOLOG] 3 ML PEN SC ×4 (08:18→13:14)
[2017-08-31] MEDS: CALCIUM ACETATE 667 MG CAP PO ×2 (08:18→12:05)
[2017-08-31] MEDS: MEGESTROL (40 MG/ML) 10ML CUP PO (09:20)
[2017-08-31] MEDS: predniSONE 10 MG TAB PO (09:20)
[2017-08-31] MEDS: LISINOPRIL 5 MG TAB PO (09:20)
== END 2017-08-31 15:20 | disposition home or self-care (01) | DRG 871 ==
LOC: MS3 21:25 → PP2 08-25 00:37 → E/R 12:26 → MS4 08-18 15:58 → MS3 16:18
PROC: 5A1D70Z Performance of Urinary Filtration, Intermittent, Less than 6 Hours Per Day (ICD-10-PCS; principal; 2017-08-16)
PROC: 5A1D70Z Performance of Urinary Filtration, Intermittent, Less than 6 Hours Per Day (ICD-10-PCS; 2017-08-18)
PROC: 6A550Z2 Pheresis of Platelets, Single (ICD-10-PCS; 2017-08-20)
PROC: 5A1D70Z Performance of Urinary Filtration, Intermittent, Less than 6 Hours Per Day (ICD-10-PCS; 2017-08-21)
PROC: 30233K1 Transfusion of Nonautologous Frozen Plasma into Peripheral Vein, Percutaneous Approach (ICD-10-PCS; 2017-08-22)
PROC: 5A1D70Z Performance of Urinary Filtration, Intermittent, Less than 6 Hours Per Day (ICD-10-PCS; 2017-08-23)
PROC: 30233M1 Transfusion of Nonautologous Plasma Cryoprecipitate into Peripheral Vein, Percutaneous Approach (ICD-10-PCS; 2017-08-24)
PROC: 5A1D70Z Performance of Urinary Filtration, Intermittent, Less than 6 Hours Per Day (ICD-10-PCS; 2017-08-25)
PROC: 5A1D70Z Performance of Urinary Filtration, Intermittent, Less than 6 Hours Per Day (ICD-10-PCS; 2017-08-27)
PROC: 5A1D70Z Performance of Urinary Filtration, Intermittent, Less than 6 Hours Per Day (ICD-10-PCS; 2017-08-30)
DX: A41.89 Other specified sepsis (principal); R65.21 Severe sepsis with septic shock; D65 Disseminated intravascular coagulation [defibrination syndrome]; J96.91 Respiratory failure, unspecified with hypoxia; I13.2 Hypertensive heart and chronic kidney disease with heart failure and with stage 5 chronic kidney disease, or end stage renal disease; N18.6 End stage renal disease; I47.2 Ventricular tachycardia; I24.8 Other forms of acute ischemic heart disease; J18.9 Pneumonia, unspecified organism; R64 Cachexia; R18.8 Other ascites; D61.818 Other pancytopenia; E87.2 Acidosis; I50.20 Unspecified systolic (congestive) heart failure; Z68.1 Body mass index [BMI] 19.9 or less, adult; J20.8 Acute bronchitis due to other specified organisms; Z99.2 Dependence on renal dialysis; D72.819 Decreased white blood cell count, unspecified; I25.10 Atherosclerotic heart disease of native coronary artery without angina pectoris; Z95.5 Presence of coronary angioplasty implant and graft; E11.22 Type 2 diabetes mellitus with diabetic chronic kidney disease; E03.9 Hypothyroidism, unspecified; Z95.810 Presence of automatic (implantable) cardiac defibrillator; E78.5 Hyperlipidemia, unspecified; E11.40 Type 2 diabetes mellitus with diabetic neuropathy, unspecified; I25.5 Ischemic cardiomyopathy; R74.8 Abnormal levels of other serum enzymes; R11.2 Nausea with vomiting, unspecified; R19.7 Diarrhea, unspecified; R63.0 Anorexia; J10.1 Influenza due to other identified influenza virus with other respiratory manifestations; R63.6 Underweight; K74.60 Unspecified cirrhosis of liver
CPT/HCPCS: 36415; 36430; 71045; 74176; 76700; 76705; 80048; 80053; 80061; 80202; 82150; 82550; 82553; 82728; 82962; 83036; 83605; 83615; 83690; 83735; 84100; 84145; 84439; 84443; 84478; 84484; 85025; 85049; 85362; 85378; 85384; 85610; 85651; 85670; 85730; 86022; 86140; 86644; 86703; 86704; 86709; 86803; 86850; 86900; 86901; 86945; 87040; 87070; 87075; 87340; 87400; 90686; 90935; 93005; 93306; 94640; 94644; 94664; 96374; 96375; 97110; 97116; 97162; 97530; 99291-25